=== PATIENT | male | born 1945 | race Caucasian/White ===

== ENCOUNTER 2018-09-03 19:45 | Emergency (ER) | payer MEDICARE ==
[~2018-09-03] VITALS: Ht 182.9 cm; Wt 74.8 kg
--- NOTE | 2018-09-03 20:00 | NUR ---
PT BIBRA FROM SNF COMPLAINING OF FOR BILATERAL LOWER EXTREMITY EDEMA X 1 WEEK. NOTED BILATERAL LOWER EXTREMITY REDDNESS. PT HAS FULL RANGE OF MOTION. PT ALSO COMPLAINING OF CLAVICULAR PAIN. PT IS AWAKE AND CONFUSED. RESPIRATIONS EVEN AND UNLABORED. VITAL SIGNS STABLE. WILL CONTINUE TO MONITOR
--- NOTE | 2018-09-03 20:10 | NUR ---
SPECIAL EDUCATION RESOURCE ROOM TEACHER AT BEDSIDE FOR BLOOD DRAW
[2018-09-03 20:18] LABS: BASOPHILS # (AUTO) 0.1 /CMM (0.0-0.2); BASOPHILS % (AUTO) 0.6 % (0.0-2.0); HEMATOCRIT 46 % (39-51); HEMOGLOBIN 15.6 g/dL (13.5-17.5); LYMPHOCYTES # (AUTO) 0.4 /CMM (0.8-4.8); LYMPHOCYTES % (AUTO) 3.9 % (20.0-44.0); MEAN CORPUSCULAR HGB CONC 34 g/dl (31.0-36.0); MEAN CORPUSCULAR VOLUME 97 fL (80-96); MONOCYTES # (AUTO) 1.3 /CMM (0.1-1.30); MONOCYTES % (AUTO) 12.4 % (2.0-12.0); NEUTROPHILS # (AUTO) 8.7 /CMM (1.8-8.9); NEUTROPHILS % (AUTO) 83.1 % (43.0-81.0); PLATELET COUNT (AUTO) 99 /CMM (150-450); RED BLOOD CELL COUNT(AUTO) 4.69 MIL/uL (4.5-6.0); WHITE BLOOD COUNT (AUTO) 10.4 K/uL (4.3-11.0)
--- NOTE | 2018-09-03 20:24 | NUR ---
RADIOLOGY AT BEDSIDE
[2018-09-03 20:34] LABS: CALCIUM, SERUM 8.6 mg/dL (8.5-10.1); CARBON DIOXIDE 33 mmol/L (21-32); CHLORIDE 98 mmol/L (98-107); CREATININE 1.2 mg/dL (0.6-1.3); GLUCOSE 156 mg/dL (74-106); POTASSIUM 4.2 mmol/L (3.5-5.1); SODIUM SERUM 135 mmol/L (136-145); UREA NITROGEN, BLOOD 19 mg/dL (7-18)
[2018-09-03 20:46] LABS: B-TYPE NATRIURETIC PEPTIDE 170 PG/ML (0-125)
[2018-09-03 21:04] LABS: BAND % (MANUAL) 4 % (0.0-5.0); LYMPHOCYTES % (MANUAL) 6 % (16-48); MONOCYTES % (MANUAL) 10 % (0-11.0); NEUTROPHILS % (MANUAL) 80 (42-76)
--- NOTE | 2018-09-03 22:39 | NUR ---
GAVE REPORT TO YOLANDA FROM [facility] FOR TRANSFER GIOVANNA
[2018-09-03 22:49] VITALS: BP 137/83
== END 2018-09-03 22:50 | disposition home or self-care (01) ==
LOC: ER 19:49
DX: R60.0 Localized edema (principal); E78.00 Pure hypercholesterolemia, unspecified; I10 Essential (primary) hypertension; K21.9 Gastro-esophageal reflux disease without esophagitis; F03.90 Unspecified dementia, unspecified severity, without behavioral disturbance, psychotic disturbance, mood disturbance, and anxiety
CPT/HCPCS: 36415; 71045-TC; 80048-TC; 83880; 84484-TC; 85025-TC; A4606; Z7610

== ENCOUNTER 2018-09-18 21:43 | Inpatient (IN) | payer MEDICARE ==
[~2018-09-18] VITALS: Ht 180.3 cm; Wt 74.8 kg
--- NOTE | 2018-09-18 21:45 | NUR ---
PT JULIO CÉSAR FROM [facility] FOR BEING AGGRESSIVE TOWARDS STAFF AND RESIDENTS FOR 2 WEEKS. PT IS ALERT, AND FOLLOWS COMMANDS. UNABLE TO STATE LOCATION AND DATE. NAD NOTED. RESPIRATION EVEN AND UNLABORED. PENDING EVAL FROM .
--- NOTE | 2018-09-18 22:15 | NUR ---
PT UNABLE TO URINATE.
--- NOTE | 2018-09-18 22:25 | NUR ---
RAIL CAR REPAIR CARMAN AT BEDSIDE.
[2018-09-18 22:36] LABS: BASOPHILS % (AUTO) 0.5 % (0.0-2.0); EOSINOPHILS % (AUTO) 0.8 % (0.0-6.0); HEMATOCRIT 38 % (39-51); HEMOGLOBIN 12.8 g/dL (13.5-17.5); LYMPHOCYTES # (AUTO) 0.9 /CMM (0.8-4.8); LYMPHOCYTES % (AUTO) 15.3 % (20.0-44.0); MEAN CORPUSCULAR HGB CONC 33 g/dl (31.0-36.0); MEAN CORPUSCULAR VOLUME 96 fL (80-96); MONOCYTES # (AUTO) 0.7 /CMM (0.1-1.30); MONOCYTES % (AUTO) 12.1 % (2.0-12.0); NEUTROPHILS % (AUTO) 71.3 % (43.0-81.0); PLATELET COUNT (AUTO) 96 /CMM (150-450); RED BLOOD CELL COUNT(AUTO) 4.01 MIL/uL (4.5-6.0); WHITE BLOOD COUNT (AUTO) 5.7 K/uL (4.3-11.0)
--- NOTE | 2018-09-18 22:50 | NUR ---
PT UNABLE TO URINATE. MD AWARE.
[2018-09-18 22:54] LABS: ALANINE AMINOTRANSFERASE 21 U/L (12-78); ALBUMIN 2.6 g/dL (3.4-5.0); ALKALINE PHOSPHATASE 67 U/L (46-116); ASPARTATE AMINOTRANSFERASE 24 U/L (15-37); BILIRUBIN,DIRECT 0.1 mg/dL (0.0-0.2); BILIRUBIN,TOTAL 0.3 mg/dL (0.2-1.0); CALCIUM, SERUM 8.5 mg/dL (8.5-10.1); CARBON DIOXIDE 34 mmol/L (21-32); CHLORIDE 104 mmol/L (98-107); CREATININE 1.3 mg/dL (0.6-1.3); GLUCOSE 145 mg/dL (74-106); POTASSIUM 4.1 mmol/L (3.5-5.1); SODIUM SERUM 139 mmol/L (136-145); TOTAL PROTEIN, SERUM 6.8 g/dL (6.4-8.2); UREA NITROGEN, BLOOD 25 mg/dL (7-18)
[2018-09-18 22:55] LABS: ACETAMINOPHEN 0 ug/ml (10-30); ALCOHOL, BLOOD < 3 mg/dL (0-0); SALICYLATE 0.7 mg/dL (2.8-20.0)
--- NOTE | 2018-09-18 23:18 | NUR ---
Patient is resting comfortably in bed with eyes closed. Easily aroused. VSS. NAD.
--- NOTE | 2018-09-18 23:42 | NUR ---
Patient is resting comfortably in bed with eyes closed. Easily aroused. VSS
--- NOTE | 2018-09-19 00:06 | NUR ---
PSYCH FIBERGLASS GRINDER AT BEDSIDE SPEAKING WITH PT.
[2018-09-19 00:31] LABS: EOSINOPHILS % (MANUAL) 2 % (0-4); LYMPHOCYTES % (MANUAL) 15 % (16-48); MONOCYTES % (MANUAL) 8 % (0-11.0); NEUTROPHILS % (MANUAL) 75 (42-76)
--- NOTE | 2018-09-19 01:38 | NUR ---
Report given to Elena MENDEZ for GIOVANNA.
[2018-09-19] MEDS ORDERED: BENZ0.5T43 PO (02:02)
[2018-09-19] MEDS ORDERED: MAGN400O6 PO (02:02)
[2018-09-19] MEDS ORDERED: HALO100A2 PO (02:02)
[2018-09-19] MEDS ORDERED: FLUV50TA10 PO (02:02)
[2018-09-19] MEDS ORDERED: ACET325T53 PO (02:02)
[2018-09-19] MEDS ORDERED: DIVA500T2 PO (02:02)
[2018-09-19] MEDS ORDERED: TEMA15CA5 PO (02:02)
--- NOTE | 2018-09-19 02:20 | NUR ---
PATIENT ADMITTED FROM [facility], INITIALLY FROM [facility] ON 5150 HOLD FOR GD. PATIENT CAME IN AT 0220 . PLACED HIM IN BED, PATIENT IS VERY LETHARGIC, MUMBLING, UNABLE TO UNDERSTAND HIS WORDS. DEPRESSED, FLAT AFFECT, CLEAN. UNABLE TO ASSESS SKIN, UNCOOPERATIVE, UNABLE TO FOLLOW INSTRUCTIONS DUE TO LETHARGY, A/O X1, CONFUSED. PATIENT IS ADMITTED DUE TO INCREASING AGGRESSIVE BEHAVIOR TO STAFF AT THE FACILITY. DISORGANIZED, DISORIENTED. BELONGINGS WERE INVENTORIED AND CHECKED FOR CONTRABAND. MED RECON NEEDS FOLLOW-UP, MRSA SCREEN DONE. PATIENT IS IN NO DISTRESS, NO S/S OF ANY PAIN. SON MADDISON, NOTIFIED OF ADMISSION, LEFT HIM A MESSAGE. BED LOCKED AND PLACED ON LOWEST POSITION. WILL CONTINUE TO MONITOR Q 15 MINS. TO MAINTAIN SAFETY.
[2018-09-19] MEDS ORDERED: ACETAMINOPHEN 325 MG TABLET PO PRN (02:30)
[2018-09-19] MEDS ORDERED: LORAZEPAM 0.5 MG TABLET PO PRN (02:30)
[2018-09-19] MEDS ORDERED: MAGNESIUM HYDROXIDE 30 ML UDC PO PRN (02:30)
[2018-09-19] MEDS ORDERED: TEMAZEPAM 7.5 MG CAPSULE PO PRN (02:30)
[2018-09-19] MEDS ORDERED: MAG HYDROX/AL HYDROX/SIMETH 30 ML UDC PO PRN (02:30)
[2018-09-19] MEDS ORDERED: IBUP-1955 PO (07:54)
[2018-09-19] MEDS ORDERED: NA P133E RC (07:54)
[2018-09-19] MEDS ORDERED: HALO5TAB PO (07:54)
[2018-09-19] MEDS ORDERED: MULT-447 PO (07:54)
[2018-09-19 08:31] VITALS: BP 97/63
[2018-09-19] MEDS: HALOPERIDOL 5 MG TABLET PO SCH ×2 (12:53→21:35)
[2018-09-19] MEDS: BENZTROPINE MESYLATE (1 MG) 1 MG TABLET PO SCH ×2 (12:54→21:35)
[2018-09-19] MEDS: DIVALPROEX SODIUM 500 MG TABLET.DR PO SCH ×2 (12:54→21:34)
[2018-09-19 16:00] VITALS: BP 105/64
[2018-09-19 20:00] VITALS: BP 103/59
[2018-09-19] MEDS: FLUVOXAMINE MALEATE 50 MG TABLET PO SCH (21:36)
[2018-09-20 07:22] LABS: BASOPHILS % (AUTO) 0.3 % (0.0-2.0); EOSINOPHILS % (AUTO) 2.2 % (0.0-6.0); HEMATOCRIT 39 % (39-51); LYMPHOCYTES # (AUTO) 1.1 /CMM (0.8-4.8); LYMPHOCYTES % (AUTO) 21.8 % (20.0-44.0); MEAN CORPUSCULAR HGB CONC 34 g/dl (31.0-36.0); MEAN CORPUSCULAR VOLUME 96 fL (80-96); MONOCYTES # (AUTO) 0.7 /CMM (0.1-1.30); MONOCYTES % (AUTO) 13.7 % (2.0-12.0); PLATELET COUNT (AUTO) 95 /CMM (150-450); RED BLOOD CELL COUNT(AUTO) 4.05 MIL/uL (4.5-6.0); WHITE BLOOD COUNT (AUTO) 4.9 K/uL (4.3-11.0)
[2018-09-20 07:48] LABS: CHOLESTEROL 152 mg/dL (<200); HDL CHOLESTEROL 35 mg/dL (40-60); LDL 112 mg/dL (0-99); TRIGLYCERIDES 62 mg/dL (30-150)
[2018-09-20 07:58] LABS: ALANINE AMINOTRANSFERASE 20 U/L (12-78); ALBUMIN 2.2 g/dL (3.4-5.0); ALKALINE PHOSPHATASE 61 U/L (46-116); ASPARTATE AMINOTRANSFERASE 21 U/L (15-37); BILIRUBIN,TOTAL 0.3 mg/dL (0.2-1.0); CALCIUM, SERUM 8.2 mg/dL (8.5-10.1); CARBON DIOXIDE 31 mmol/L (21-32); CHLORIDE 105 mmol/L (98-107); CREATININE 1.3 mg/dL (0.6-1.3); GLUCOSE 99 mg/dL (74-106); POTASSIUM 4.2 mmol/L (3.5-5.1); SODIUM SERUM 139 mmol/L (136-145); TOTAL PROTEIN, SERUM 6.2 g/dL (6.4-8.2); UREA NITROGEN, BLOOD 21 mg/dL (7-18)
[2018-09-20 08:00] VITALS: BP 100/61
[2018-09-20] MEDS: DIVALPROEX SODIUM 500 MG TABLET.DR PO SCH ×2 (09:36→21:24)
[2018-09-20] MEDS: HALOPERIDOL 5 MG TABLET PO SCH ×2 (09:36→21:24)
[2018-09-20] MEDS: BENZTROPINE MESYLATE (1 MG) 1 MG TABLET PO SCH ×2 (09:36→21:24)
[2018-09-20 13:30] LABS: EOSINOPHILS % (MANUAL) 2 % (0-4); LYMPHOCYTES % (MANUAL) 22 % (16-48); MONOCYTES % (MANUAL) 5 % (0-11.0); NEUTROPHILS % (MANUAL) 71 (42-76)
[2018-09-20 16:00] VITALS: BP 100/62
[2018-09-20 20:25] VITALS: BP 121/64
[2018-09-20] MEDS: FLUVOXAMINE MALEATE 50 MG TABLET PO SCH (21:24)
[2018-09-21 08:00] VITALS: BP 95/54
[2018-09-21] MEDS: DIVALPROEX SODIUM 500 MG TABLET.DR PO SCH ×2 (09:03→21:25)
[2018-09-21] MEDS: HALOPERIDOL 5 MG TABLET PO SCH ×2 (09:03→21:25)
[2018-09-21] MEDS: BENZTROPINE MESYLATE (1 MG) 1 MG TABLET PO SCH ×2 (09:03→21:25)
--- NOTE | 2018-09-21 13:56 | NUR ---
MIKE called the pt's son, Rahat ([phone]), and left a message on his voicemail stating that the SW would like to discuss the pt's discharge plan.
--- NOTE | 2018-09-21 15:32 | NUR ---
Initial Discharge Plan: Pt currently resides at [facility] located at [address] [place] [address]; ([phone]). MIKE called the junior systems administrator, Hemalatha Ann ([phone]), and she stated that the pt can return. MIKE will work with the pt and the MD regarding appropriate discharge planning. SW will form a safe and proper discharge.
[2018-09-21 16:00] VITALS: BP 101/61
[2018-09-21 20:35] VITALS: BP 115/64
[2018-09-21] MEDS: FLUVOXAMINE MALEATE 50 MG TABLET PO SCH (21:26)
[2018-09-22 08:00] VITALS: BP_SYST 100; BP_DIAS 56; BP_DIAS 65
[2018-09-22] MEDS: BENZTROPINE MESYLATE (1 MG) 1 MG TABLET PO SCH ×2 (08:31→21:12)
[2018-09-22] MEDS: HALOPERIDOL 5 MG TABLET PO SCH ×2 (08:31→21:11)
[2018-09-22] MEDS: DIVALPROEX SODIUM 500 MG TABLET.DR PO SCH ×2 (08:31→21:12)
[2018-09-22] MEDS: ASPIRIN 81 MG TAB.CHEW PO SCH (08:36)
--- NOTE | 2018-09-22 15:12 | NUR ---
MIKE called the pt's son, Rahat ([phone]), and discussed the pt returning to [facility]. Pt's son stated that he is looking into other facilities for his father but for the time being he would accept for the pt to go back to [facility] because it is a familiar environment for him.
--- NOTE | 2018-09-22 16:00 | NUR ---
GPS/RN-NOTES SEEN BY NELSON THOMASON AWARE OF PATIENT BLE EDEMA.
[2018-09-22 20:00] VITALS: BP 102/52
[2018-09-22] MEDS: FLUVOXAMINE MALEATE 50 MG TABLET PO SCH (21:11)
[2018-09-22] MEDS: ATORVASTATIN 40 MG TABLET PO SCH (22:18)
[2018-09-23 08:00] VITALS: BP 100/96
[2018-09-23] MEDS: HALOPERIDOL 5 MG TABLET PO SCH ×2 (09:31→21:45)
[2018-09-23] MEDS: ASPIRIN 81 MG TAB.CHEW PO SCH (09:31)
[2018-09-23] MEDS: BENZTROPINE MESYLATE (1 MG) 1 MG TABLET PO SCH ×2 (09:31→21:44)
[2018-09-23] MEDS: DIVALPROEX SODIUM 500 MG TABLET.DR PO SCH ×2 (09:31→21:45)
--- NOTE | 2018-09-23 12:40 | NUR ---
Group Note: Group note: Pt attended a group session on 09/23/18 at 11AM discussing the topic of their psychiatric admission and an area in their life that they would like to work on and improve. S: Pt stated that he was admitted to the hospital and he was unsure of the reason. The pt stated that he is trying to understand everything that has been happening and just wants things to go back to normal. Pt stated that once he is discharged from the hospital, he would like to reconnect with his family. O: Pt was present during the group session and was cooperative. Pt appeared to be in a euthymic mood and presented with a distressed affect. Pt appeared to be uncomfortable when he first arrived but then once he was introduced to the other members, the pt appeared to feel more comfortable and began to participate. A: Pt understood that he has been disconnected from his support system because he has been moving around from facility to facility and it has been difficult for his family. He stated that he has not been speaking to his son lately because he wants to be able to understand his own life but realized that his son would be a great support to him. P: Pt will continue milieu treatment and medication stabilization.
[2018-09-23 16:00] VITALS: BP 152/56
--- NOTE | 2018-09-23 19:30 | NUR ---
Received pt asleep and in bed; no s/s or complaints of pain at this time. Pt is displaying no s/s of acute/apparent distress at this time. Pt's RR is WNL: unlabored with equal rise and fall of the chest. Pt. is A&Ox3 on room air with a SpO2 of 100. Pt. is med compliant, depressed mood. Pt denies SI/HI at this time. Pt. assisted with turning and repositioning q2hrs and PRN for comfort and circulation. Pt. has no needs at this time. Pt. educated on the use of the call orellana. Pt bed side rails up x2 for safety, bed is locked and in low position; will continue to monitor and maintain safety.
[2018-09-23 20:00] VITALS: BP 102/57
[2018-09-23] MEDS: FLUVOXAMINE MALEATE 50 MG TABLET PO SCH (21:45)
[2018-09-23] MEDS: ATORVASTATIN 40 MG TABLET PO SCH (21:45)
[2018-09-24 08:00] VITALS: BP 109/55
[2018-09-24] MEDS: BENZTROPINE MESYLATE (1 MG) 1 MG TABLET PO SCH ×2 (10:09→20:51)
[2018-09-24] MEDS: DIVALPROEX SODIUM 500 MG TABLET.DR PO SCH ×2 (10:09→20:50)
[2018-09-24] MEDS: HALOPERIDOL 5 MG TABLET PO SCH ×2 (10:09→20:50)
[2018-09-24] MEDS: ASPIRIN 81 MG TAB.CHEW PO SCH (10:10)
--- NOTE | 2018-09-24 14:15 | NUR ---
MIKE called the pt's son, Rahat ([phone]), and informed him that the pt will be discharged back to [facility] tomorrow.
[2018-09-24 16:00] VITALS: BP 102/53
[2018-09-24 20:11] VITALS: BP 101/52
[2018-09-24] MEDS: ATORVASTATIN 40 MG TABLET PO SCH (20:50)
[2018-09-24] MEDS: FLUVOXAMINE MALEATE 50 MG TABLET PO SCH (20:50)
[2018-09-25 07:43] LABS: BASOPHILS % (AUTO) 0.6 % (0.0-2.0); EOSINOPHILS % (AUTO) 1.5 % (0.0-6.0); HEMATOCRIT 38 % (39-51); HEMOGLOBIN 12.8 g/dL (13.5-17.5); LYMPHOCYTES # (AUTO) 1.2 /CMM (0.8-4.8); LYMPHOCYTES % (AUTO) 22.6 % (20.0-44.0); MEAN CORPUSCULAR HGB CONC 34 g/dl (31.0-36.0); MEAN CORPUSCULAR VOLUME 96 fL (80-96); MONOCYTES # (AUTO) 0.7 /CMM (0.1-1.30); MONOCYTES % (AUTO) 13.2 % (2.0-12.0); NEUTROPHILS # (AUTO) 3.2 /CMM (1.8-8.9); NEUTROPHILS % (AUTO) 62.1 % (43.0-81.0); PLATELET COUNT (AUTO) 96 /CMM (150-450); RED BLOOD CELL COUNT(AUTO) 3.96 MIL/uL (4.5-6.0); WHITE BLOOD COUNT (AUTO) 5.2 K/uL (4.3-11.0)
[2018-09-25 07:58] LABS: CALCIUM, SERUM 8.1 mg/dL (8.5-10.1); CARBON DIOXIDE 33 mmol/L (21-32); CHLORIDE 102 mmol/L (98-107); CREATININE 1.2 mg/dL (0.6-1.3); GLUCOSE 70 mg/dL (74-106); POTASSIUM 4.5 mmol/L (3.5-5.1); SODIUM SERUM 138 mmol/L (136-145); UREA NITROGEN, BLOOD 27 mg/dL (7-18)
[2018-09-25 08:00] VITALS: BP 100/59
[2018-09-25] MEDS: ASPIRIN 81 MG TAB.CHEW PO SCH (08:24)
[2018-09-25] MEDS: BENZTROPINE MESYLATE (1 MG) 1 MG TABLET PO SCH (08:24)
[2018-09-25] MEDS: HALOPERIDOL 5 MG TABLET PO SCH (08:24)
[2018-09-25] MEDS: DIVALPROEX SODIUM 500 MG TABLET.DR PO SCH (08:24)
--- NOTE | 2018-09-25 10:17 | NUR ---
MIKE faxed the paperwork to Hemalatha Ann from [facility] to the fax number: [phone].
--- NOTE | 2018-09-25 10:30 | NUR ---
DR. FRANCO GAVE AN ORDER TO D/C HOLD AND D/C TO [facility], TO FOLLOW UP WITH PSYCH AND MEDICAL DOCTORS AND TO CONTINUE SAME MEDS INCLUDING PRN.
--- NOTE | 2018-09-25 15:14 | NUR ---
GPS RN NOTE; PT DISCHARGE TO [facility] [address] [place], [place] LEFT BY AMBULANCE IN STABLE CONDITION . PT CALM AND COOPERATIVE VSS, BP 97/65 P 65 O2 98 T 98.1 PT DENIES SI/HI, NO C/O PAIN DISCOMFORT. DR FRANCO ORDER DC PT TO SNF DR CASANOVA SEEN AND EXAMINE A PT . EXIT CARE DONE PRINTED, SIGN AND GIVEN TO PT. ALL BELONGINGS RETURNED TO PT,PT REFUSED SKIN ASSESSMENT , REPORT GIVEN TO RN IN THE FACILITY.
--- NOTE | 2018-09-25 15:29 | NUR ---
Discharge Note: Pt was discharged to [facility] ([facility]) located at [address] [place] [address]; ([phone]). Pt was transported via [facility] (Trip #[id number]) at 2:30pm. Pts son, Rahat ([phone]), agreed to this placement. Upon discharge, the pt appeared to be in a euthymic mood and presented with an anxious affect. He stated that he would like to return to the facility that he came from because he was familiar with it. Pt denied both suicidal and homicidal ideation as well as auditory and visual hallucinations. Pt will be under the care of his psychiatrist, Dr. [place], [place] [address] [place] [address]; and his hse manager, Dr. Keating, located at [address] [address], [address] [place] [address]; .
== END 2018-09-25 15:00 | DRG 885 ==
LOC: ER 21:45 → GPS 09-19 02:05
PROVIDERS: ADMIT Psychiatry & Neurology Psychiatry; ATTEND Psychiatry & Neurology Psychiatry
DX: F29 Unspecified psychosis not due to a substance or known physiological condition (principal); E44.0 Moderate protein-calorie malnutrition; F42.9 Obsessive-compulsive disorder, unspecified; E78.5 Hyperlipidemia, unspecified; F03.90 Unspecified dementia, unspecified severity, without behavioral disturbance, psychotic disturbance, mood disturbance, and anxiety; F41.9 Anxiety disorder, unspecified; G47.00 Insomnia, unspecified; I10 Essential (primary) hypertension; K21.9 Gastro-esophageal reflux disease without esophagitis; R73.03 Prediabetes; Z68.23 Body mass index [BMI] 23.0-23.9, adult; E88.09 Other disorders of plasma-protein metabolism, not elsewhere classified; R60.0 Localized edema
CPT/HCPCS: 36415; 80048-TC; 80053-TC; 80061-TC; 80076-TC; 85025-TC; 87081-TC; 93307-TC; G0480

== ENCOUNTER 2021-08-11 12:43 | Inpatient (IN) | payer MEDICARE ==
[~2021-08-11] VITALS: Ht 180.3 cm; Wt 59.4 kg
[~2021-08-11 12:43] MED LIST: ACET325T53 PO; IBUP-1955 PO; MAGN400O6 PO; MULT-447 PO; NA P133E RC
--- NOTE | 2021-08-11 13:07 | NUR ---
The patient is bibson, sent by Dr. Jett for weakness and snf placement. Alert and oriented x2. Denies pain. In room air and denies SOB. Respiration regular and unlabored. Will continue to monitor the patient.
--- NOTE | 2021-08-11 13:12 | NUR ---
MOVE SHEET SUBMITTED AND CALLED FOR TELE BED.
--- NOTE | 2021-08-11 13:24 | NUR ---
COVID SWAB DONE AND SENT TO THE LAB
[2021-08-11] MEDS ORDERED: IV NS 0.9% 1,000 ML BAG IV ONE (13:30)
[2021-08-11] MEDS ORDERED: CLON1TAB12 PO (13:36)
[2021-08-11] MEDS ORDERED: QUET50TA PO (13:36)
[2021-08-11] MEDS ORDERED: ZOLP5TAB2 PO (13:36)
[2021-08-11] MEDS ORDERED: SKULLCAP PO (13:36)
[2021-08-11] MEDS ORDERED: DIVA-78 PO (13:36)
[2021-08-11 13:45] LABS: BASOPHILS % (AUTO) 0.8 % (0.0-2.0); EOSINOPHILS % (AUTO) 4.5 % (0.0-6.0); HEMATOCRIT 35 % (39-51); HEMOGLOBIN 11.9 g/dL (13.5-17.5); LYMPHOCYTES # (AUTO) 0.7 K/uL (0.8-4.8); LYMPHOCYTES % (AUTO) 15.2 % (20.0-44.0); MEAN CORPUSCULAR HGB CONC 34 g/dl (31.0-36.0); MEAN CORPUSCULAR VOLUME 97 fL (80-96); MONOCYTES # (AUTO) 0.6 K/uL (0.1-1.30); MONOCYTES % (AUTO) 13.6 % (2.0-12.0); NEUTROPHILS # (AUTO) 3.1 K/uL (1.8-8.9); NEUTROPHILS % (AUTO) 65.9 % (43.0-81.0); PLATELET COUNT (AUTO) 186 K/uL (150-450); RED BLOOD CELL COUNT(AUTO) 3.66 MIL/uL (4.5-6.0); WHITE BLOOD COUNT (AUTO) 4.7 K/uL (4.3-11.0)
[2021-08-11 13:49] LABS: ALANINE AMINOTRANSFERASE 14 U/L (12-78); ALBUMIN 2.6 g/dL (3.4-5.0); ALKALINE PHOSPHATASE 101 U/L (46-116); ASPARTATE AMINOTRANSFERASE 28 U/L (15-37); BILIRUBIN,TOTAL 0.4 mg/dL (0.2-1.0); CALCIUM, SERUM 8.3 mg/dL (8.5-10.1); CARBON DIOXIDE 31 mmol/L (21-32); CHLORIDE 100 mmol/L (98-107); GLUCOSE 146 mg/dL (74-106); LIPASE 64 U/L (73-393); POTASSIUM 5.5 mmol/L (3.5-5.1); SODIUM SERUM 136 mmol/L (136-145); TOTAL PROTEIN, SERUM 6.6 g/dL (6.4-8.2); UREA NITROGEN, BLOOD 20 mg/dL (7-18)
--- NOTE | 2021-08-11 14:28 | NUR ---
REPORT GIVEN NURSE SINGH
--- NOTE | 2021-08-11 14:42 | NUR ---
THE PATIENT IS TRANSFERED TO ASSIGNED ROOM PER POLICY
--- NOTE | 2021-08-11 15:00 | NUR ---
HOT BLASTER NOTE ADMITTED FROM ER IS A MALE PATIENT TRANSPORTED ON A GURNEY, AND ACCOMPANIED BY 2 NURSES. PATIENT TRANSFERRD TO BED AND COMFORT MEASURES PROVIDED. PATIENT IS ALERT AND ORIENTED X 1. FOLLOWS SIMPLE COMMANDS MOST OF THE TIME. PATIENT IS ON ROOM AIR WITH EQUAL AND UNLABORED BREATHING, TOLERATED WELL. PATIENT REMOVED IV ACCESS ON LEFT AC FROM ER. REINSERTED IV ACCESS ON RIGHT FOREARM G,20 INFUSING WELL. STARTED IVF OF 1/2 NS RUNNING AT 75ML/HR, INFUSING WELL. PATIENT KEEPS ON GETTING UP IS UNAWARE CONFUSED ABOUT HIS NEW ENVIRONMENT. PATIENT SPEECH IS UNCLEAR, WHICH IS APPARENTLY HIS BASELINE. DR. CASANOVA NOTIFIED OF ADMISSION. SAFETY MEASURES ENSURED WITH SIDERAILS RAISED FOR SAFETY, BED LOCKED AND AT LOWEST POSITION WITH ALARM ON. CALL LIGHT WITHIN REACH AT ALL TIMES. WILL CONTINUE TO MONITOR PATIENT.
[2021-08-11 16:00] VITALS: BP 114/69
[2021-08-11] MEDS ORDERED: MAG HYDROX/AL HYDROX/SIMETH 30 ML UDC PO PRN (16:00)
[2021-08-11] MEDS ORDERED: MAGNESIUM HYDROXIDE 30 ML UDC PO PRN (16:00)
[2021-08-11] MEDS ORDERED: ZOLPIDEM TARTRATE 5 MG TABLET PO PRN (16:00)
[2021-08-11] MEDS ORDERED: ACETAMINOPHEN 325 MG TABLET PO PRN (16:00)
[2021-08-11] MEDS ORDERED: ONDANSETRON HCL/PF 4 MG/2 ML VIAL IVP PRN (16:00)
[2021-08-11] MEDS ORDERED: Z GUARD REMEDY 2 OZ OINT TP PRN (16:00)
[2021-08-11] MEDS: IV 1/2NS 1000 ML 1,000 ML IV PRN (16:11)
[2021-08-11] MEDS: ENOXAPARIN SODIUM 40 MG/0.4 ML DISP.SYRIN SQ SCH (17:08)
[2021-08-11] MEDS: ASPIRIN 81 MG TAB.CHEW PO SCH (19:02)
--- NOTE | 2021-08-11 19:10 | NUR ---
INVESTIGATIVE ANALYST CLOSING NOTE PATIENT IS ALERT AND ORIENTED X 1. FOLLOWS SIMPLE COMMANDS MOST OF THE TIME. PATIENT IS ON ROOM AIR WITH EQUAL AND UNLABORED BREATHING, TOLERATED WELL. PATIENT WITH IV ACCESS ON RIGHT FOREARM G,20 INFUSING WELL. STARTED IVF OF 1/2 NS RUNNING AT 75ML/HR, INFUSING WELL. PATIENT KEEPS ON GETTING UP IS UNAWARE CONFUSED ABOUT HIS NEW ENVIRONMENT AND IS A HIGH RISK FOR FALL. SECURED ORDERED FROM DR. CASANOVA FOR SOFT WRIST RESTRAINTS. SON MADDISON AWARE AND VERBALIZED UNDERSTANDING. PATIENT SPEECH IS UNCLEAR, WHICH IS APPARENTLY HIS BASELINE. SAFETY MEASURES ENSURED WITH SIDERAILS RAISED FOR SAFETY, BED LOCKED AND AT LOWEST POSITION WITH ALARM ON. CALL LIGHT WITHIN REACH AT ALL TIMES. WILL ENDORSE PATIENT FOR CONTINUITY OF CARE.
--- NOTE | 2021-08-11 19:15 | NUR ---
ENDS DOWN CHECKER OPENING NOTE PT AWAKE IN BED, A/OX1 TO NAME, DISORIENTED/CONFUSED, ABLE TO FOLLOW SIMPLE DIRECTIONS. RESPIRATIONS EVEN/UNLABORED, ON ROOM AIR, CHRISTOPHER.WELL. IV SITE R-FA #[address], RUNNING 1/2NS @75ML/HR. WITH CANDICE. SOFT WRIST RESTRAINTS IN PLACE D/T PULLING OUT LINES/TUBINGS/TELE MONITOR. SKIN/CIRCULATION WITH NO S/S OF COMPLICATIONS NOTED. SAFETY MEASURES IN PLACE. WILL CONT TO MONITOR.
[2021-08-11 20:00] VITALS: BP 104/61
--- NOTE | 2021-08-11 22:22 | NUR ---
RN NOTE NOTED PT'S RESTRAINTS OFF AND HAD PULLED OUT HIS IV AND TELE MONITOR. PT REDIRECTED, BEDSIDE CARE DONE, CHANGED SOILED LINENS AND MADE COMFORTABLE IN BED. PT FOLLOWED DIRECTIONS. ABLE TO REINSERT IV TO R-UPPER ARM #22G AND CHRISTOPHER WELL. RECONNECTED TO TELE MONITOR AND RE-APPLIED CANDICE. SOFT WRIST RESTRAINTS. WILL CONT. FREQUENT VISUAL CHECK.
[2021-08-12] VITALS: BP 134/67
[2021-08-12 04:00] VITALS: BP 121/61
[2021-08-12 07:09] LABS: BASOPHILS % (AUTO) 0.8 % (0.0-2.0); EOSINOPHILS % (AUTO) 3.6 % (0.0-6.0); HEMATOCRIT 36 % (39-51); HEMOGLOBIN 12.3 g/dL (13.5-17.5); LYMPHOCYTES # (AUTO) 0.8 K/uL (0.8-4.8); MEAN CORPUSCULAR HGB CONC 34 g/dl (31.0-36.0); MEAN CORPUSCULAR VOLUME 96 fL (80-96); MONOCYTES # (AUTO) 0.7 K/uL (0.1-1.30); NEUTROPHILS # (AUTO) 4.1 K/uL (1.8-8.9); NEUTROPHILS % (AUTO) 69.6 % (43.0-81.0); PLATELET COUNT (AUTO) 155 K/uL (150-450); RED BLOOD CELL COUNT(AUTO) 3.78 MIL/uL (4.5-6.0); WHITE BLOOD COUNT (AUTO) 5.9 K/uL (4.3-11.0)
--- NOTE | 2021-08-12 07:15 | NUR ---
TELE/RN CLOSING NOTE PT RESTING IN BED, EASILY AROUSABLE TO STIMULI. VERBALLY RESPONSIVE WITH CONFUSION. REORIENTATION PROVIDED. NO S/S OF PAIN NOTED. PT WITH CANDICE. SOFT WRIST RESTRAINTS IN PLACE FOR SAFETY D/T PULLING OUT LINES. SKIN AND CIRCULATION WNL. PT IN NO ACUTE DISTRESS. SAFETY MEASURES IN PLACE.
--- NOTE | 2021-08-12 07:30 | NUR ---
SKID MACHINE OPERATOR OPENING NOTES RECEIVED PATIENT ON BED, AWAKE AND VERBALLY RESPONSIVE WITH CONFUSION. ON ROOM AIR TOLERATING WELL. NO SOB NOTED. NOT IN DISTRESS. WITH NO SIGNS OF PAIN VIA FLACC. WITH IV ACCESS AT RIGHT UPPER ARM G22 WITH 1/2NS AT 75ML/HR INFUSING WELL. ON SOFT BILATERAL WRIST RESTRAINTS DUE TO PULLING OUT IV LINES AND GIZZARD SKIN REMOVER. SKIN AND CIRCULATION WITHIN NORMAL. SAFETY MEASURES IN PLACE. CALL LIGHT WITHIN REACH. BED ON LOWEST AND LOCKED POSITION, SIDE RAILS UP X2. WILL CONTINUE TO MONITOR.
[2021-08-12 08:00] VITALS: BP 138/84
[2021-08-12 08:02] LABS: CALCIUM, SERUM 8.1 mg/dL (8.5-10.1); CREATININE 0.9 mg/dL (0.6-1.3); PHOSPHORUS 3.2 mg/dL (2.5-4.9); POTASSIUM 4.4 mmol/L (3.5-5.1)
[2021-08-12 08:13] LABS: THYROID STIMULATING HORMONE 1.39 uIU/mL (0.358-3.74)
[2021-08-12] MEDS ORDERED: MAGNESIUM HYDROXIDE 30 ML UDC PO PRN (09:00)
[2021-08-12] MEDS ORDERED: ACETAMINOPHEN 325 MG TABLET PO PRN (09:00)
--- NOTE | 2021-08-12 09:00 | NUR ---
MS RN NOTES PATIENT TOOK 30% OF HIS CRUSHED MEDICATIONS WITH APPLE SAUCE. PATIENT KEPT ON SPITTING OUT MEDICATIONS.
[2021-08-12] MEDS: PANTOPRAZOLE 40 MG TABLET.DR PO SCH (09:05)
[2021-08-12] MEDS: ASPIRIN 81 MG TAB.CHEW PO SCH (09:05)
[2021-08-12] MEDS: clonazePAM 1 MG TABLET PO SCH ×3 (09:05→16:46)
[2021-08-12] MEDS: DIVALPROEX SODIUM 500 MG TABLET.DR PO SCH ×3 (09:05→16:46)
[2021-08-12] MEDS: QUETIAPINE FUMARATE 25 MG TABLET PO SCH ×2 (09:05→16:46)
[2021-08-12] MEDS: MULTIVIT W/MINERALS 1 TAB TABLET PO SCH (09:05)
[2021-08-12] MEDS: ENSURE ENLIVE 237 ML LIQUID (VANILLA) PO SCH ×2 (12:59→17:31)
--- NOTE | 2021-08-12 13:00 | NUR ---
MS RN NOTES PATIENT TOOK 50% OF HIS CRUSHED MEDICATIONS. PATIENT KEEPS ON SPITTING OUT HIS MEDICATIONS WITH APPLE SAUCE.
[2021-08-12] MEDS: IV 1/2NS 1000 ML 1,000 ML IV PRN (13:56)
[2021-08-12] MEDS: ENOXAPARIN SODIUM 40 MG/0.4 ML DISP.SYRIN SQ SCH (16:49)
--- NOTE | 2021-08-12 18:25 | NUR ---
PROPERTY CONTROLLER CLOSING NOTES PATIENT ON BED, AWAKE AND VERBALLY RESPONSIVE WITH CONFUSION. ON ROOM AIR TOLERATING WELL. NO SOB NOTED. NOT IN DISTRESS. WITH NO SIGNS OF PAIN VIA FLACC. WITH IV ACCESS AT RIGHT UPPER ARM G22 WITH 1/2NS AT 75ML/HR INFUSING WELL. ON SOFT BILATERAL WRIST RESTRAINTS DUE TO PULLING OUT IV LINES AND MOLECULAR PHYSICIST. SKIN AND CIRCULATION WITHIN NORMAL. DUE MEDS GIVEN. SAFETY MEASURES IN PLACE. CALL LIGHT WITHIN REACH. BED ON LOWEST AND LOCKED POSITION, SIDE RAILS UP X2. WILL ENDORSE TO NEXT SHIFT FOR GIOVANNA.
--- NOTE | 2021-08-12 18:28 | NUR ---
PLATE ROLLER NOTES ON TELEMONITOR CURRENTLY READING SR AT 73BPM.
--- NOTE | 2021-08-12 19:25 | NUR ---
TELE/RN OPENING NOTES PT RESTING IN BED, EASILY AROUSABLE TO STIMULI. A/OX1, CONFUSED/DISORIENTED. REORIENTATION PROVIDED. RESPIRATIONS EVEN/UNLABORED. ON ROOM AIR AND CHRISTOPHER WELL. IV SITE TO MARBELLA #22G INTACT/PATENT, RUNNING 1/2NS @75ML/HR. TELE MONITOR READING SR, HR 68. CANDICE. SOFT WRIST RESTRAINTS IN PLACE FOR SAFETY D/T PULLING OUT LINES/TUBES. SKIN AND CIRCULATION CHECKED WITH NO S/S OF COMPLICATIONS NOTED. PT IN NO ACUTE DISTRESS. SAFETY MEASURES IN PLACE. WILL CONT TO MONITOR.
[2021-08-12 20:00] VITALS: BP 136/66
[2021-08-12] MEDS ORDERED: ZOLPIDEM TARTRATE 5 MG TABLET PO SCH (22:00)
--- NOTE | 2021-08-12 22:58 | NUR ---
RN NOTE ROOM CHANGE FROM 324-2 TO 328-1
[2021-08-13] VITALS: BP 133/67
[2021-08-13 04:00] VITALS: BP 127/76
[2021-08-13] MEDS: IV 1/2NS 1000 ML 1,000 ML IV PRN (04:20)
--- NOTE | 2021-08-13 07:20 | NUR ---
TELE/RN CLOSING NOTE PT AWAKE IN BED, VERBALLY RESPONSIVE WITH CONFUSION. REORIENTATION PROVIDED. NO S/S OF PAIN NOTED. PT WITH CANDICE. SOFT WRIST RESTRAINTS IN PLACE FOR SAFETY D/T PULLING OUT LINES, WITH SKIN AND CIRCULATION WNL. PT IN NO ACUTE DISTRESS. SAFETY MEASURES IN PLACE. ALL NEEDS ATTENDED TO.
--- NOTE | 2021-08-13 07:30 | NUR ---
PT RECEIVED RESTING COMFORTABLY IN BED. NO S/S OR C/O PAIN OR DISTRESS NOTED. SIDE RAILS UP X2, CALL LIGHTS LEFT WITHIN REACH. WILL CONTINUE PLAN OF CARE.
[2021-08-13 08:00] VITALS: BP 120/71
[2021-08-13] MEDS: QUETIAPINE FUMARATE 25 MG TABLET PO SCH (08:25)
[2021-08-13] MEDS: MULTIVIT W/MINERALS 1 TAB TABLET PO SCH (08:26)
[2021-08-13] MEDS: PANTOPRAZOLE 40 MG TABLET.DR PO SCH (08:26)
[2021-08-13] MEDS: clonazePAM 1 MG TABLET PO SCH ×3 (08:26→18:10)
[2021-08-13] MEDS: ASPIRIN 81 MG TAB.CHEW PO SCH (08:26)
[2021-08-13] MEDS: DIVALPROEX SODIUM 500 MG TABLET.DR PO SCH ×3 (08:26→18:10)
[2021-08-13] MEDS: ENSURE ENLIVE 237 ML LIQUID (VANILLA) PO SCH ×3 (08:26→18:10)
--- NOTE | 2021-08-13 09:50 | NUR ---
WOUND CARE CONSULT: PT PRESENTS WITH RESOLVING STAGE 3 ULCER TO SACRUM, PRESENT ON ADMISSION. RECOMMENDATIONS MADE FOR SKIN PROTECTION AND WOUND CARE. DISCUSSED WITH NURSING STAFF. PT IS ON [facility] LOW AIRSS BED. DIETARY CONSULT IN PLACE. PT IS THIN. IN AGREEMENT WITH PLAN OF CARE. Addendum: 08/13/21 at 0952 by KEVIN ALDANAU Amended: Links added. Addendum: 08/13/21 at 0954 by KEVIN ALDANAU PT ALSO NOTED TO HAVE DRY SCABS ON ARMS, PRESENT ON ADMISSION.
[2021-08-13] MEDS ORDERED: HYDROGEL DRESSING 90 GM TUBE TP PRN (10:00)
[2021-08-13 12:00] VITALS: BP 91/44
[2021-08-13] MEDS: HYDROGEL DRESSING 90 GM TUBE TP SCH (14:05)
[2021-08-13 16:00] VITALS: BP 99/66
[2021-08-13] MEDS: ENOXAPARIN SODIUM 40 MG/0.4 ML DISP.SYRIN SQ SCH (18:07)
--- NOTE | 2021-08-13 19:30 | NUR ---
RN OPENING NOTES RESTING COMFORTABLY IN BED. NO S/S OR C/O PAIN OR DISTRESS NOTED. SIDE RAILS UP X2, CALL LIGHTS LEFT WITHIN REACH. PT HAS RESPRAINTS ON AT THIS TIME.WILL CONTINUE PLAN OF CARE.
--- NOTE | 2021-08-13 19:39 | NUR ---
CHANGE OF SHIFT REPORT PT RESTING COMFORTABLY IN BED. NO S/S OR C/O PAIN OR DISTRESS NOTED. SIDE RAILS UP X2, CALL LIGHT LEFT WITHIN REACH. PT KEPT CLEAN, DRY, AND COMFORTABLE. NO SIGNIFICANT CHANGES SINCE PREVIOUS SHIFT. WILL GIVE REPORT TO GITA MENDEZ.
[2021-08-13 20:00] VITALS: BP 106/67
[2021-08-14] VITALS: BP 102/65
[2021-08-14 04:00] VITALS: BP 115/74
--- NOTE | 2021-08-14 06:42 | NUR ---
RN NOTES PT RESTING COMFORTABLY IN BED. NO S/S OR C/O PAIN OR DISTRESS NOTED. SIDE RAILS UP X2, CALL LIGHT LEFT WITHIN REACH. PT KEPT CLEAN, DRY, AND COMFORTABLE. NO SIGNIFICANT CHANGES SINCE PREVIOUS SHIFT. WILL ENDORSE CRAE TO DAY SHIFT NURSE.
[2021-08-14] MEDS: PANTOPRAZOLE 40 MG TABLET.DR PO SCH (07:30)
[2021-08-14 08:00] VITALS: BP 98/63
[2021-08-14] MEDS: ENSURE ENLIVE 237 ML LIQUID (VANILLA) PO SCH ×3 (08:00→17:16)
[2021-08-14] MEDS: HALOPERIDOL LACTATE 10 MG/5 ML UDC GT SCH ×3 (08:47→17:13)
[2021-08-14] MEDS: DIVALPROEX SODIUM 500 MG TABLET.DR PO SCH ×3 (08:47→17:11)
[2021-08-14] MEDS: ASPIRIN 81 MG TAB.CHEW PO SCH (08:47)
[2021-08-14] MEDS: MULTIVIT W/MINERALS 1 TAB TABLET PO SCH (08:47)
[2021-08-14] MEDS: clonazePAM 1 MG TABLET PO SCH ×3 (08:47→17:11)
[2021-08-14] MEDS: HYDROGEL DRESSING 90 GM TUBE TP SCH (12:23)
[2021-08-14 16:09] VITALS: BP 106/65
[2021-08-14] MEDS: ENOXAPARIN SODIUM 40 MG/0.4 ML DISP.SYRIN SQ SCH (17:15)
--- NOTE | 2021-08-14 18:31 | NUR ---
CHANGE OF SHIFT REPORT PT RESTING COMFORTABLY IN BED. NO S/S OR C/O PAIN OR DISTRESS NOTED. SIDE RAILS UP X2, CALL LIGHT LEFT WITHIN REACH. PT KEPT CLEAN, DRY, AND COMFORTABLE. NO SIGNIFICANT CHANGES SINCE PREVIOUS SHIFT. HD ONGOING WILL GIVE REPORT TO GITA MENDEZ.
--- NOTE | 2021-08-14 19:26 | NUR ---
RN OPENING NOTES PT RESTING COMFORTABLY IN BED. NO S/S OR C/O PAIN OR DISTRESS NOTED. SIDE RAILS UP X2, CALL LIGHT LEFT WITHIN REACH. PT KEPT CLEAN, DRY, AND COMFORTABLE. PT ON BILATERAL SOFT WRIST RESTRAINTS CHECKED EVERY TWO HOURS . WILL CONTINUE TO MONITOR.
[2021-08-14 20:00] VITALS: BP 119/75
[2021-08-14 22:54] LABS: BILIRUBIN,URINE NEGATIVE (NEGATIVE); COLOR,URINE YELLOW (YELLOW); LEUKOCYTE ESTERASE ,URINE NEGATIVE (NEGATIVE); NITRITE, URINE NEGATIVE (NEGATIVE); PH,URINE 6.5 (5.0-8.0); PROTEIN,URINE NEGATIVE (NEGATIVE); UGLUCOSE NEGATIVE (NEGATIVE)
[2021-08-14 23:05] LABS: RBC,URINE 0-2 /HPF (0-2)
[2021-08-14 23:08] LABS: BACTERIA,URINE Few /HPF (None Seen); SQUAMOUS EPITHELIAL CELL,UR Few /HPF (None Seen)
--- NOTE | 2021-08-15 06:36 | NUR ---
RN OPENING NOTES PT RESTING COMFORTABLY IN BED. NO S/S OR C/O PAIN OR DISTRESS NOTED. SIDE RAILS UP X2, CALL LIGHT LEFT WITHIN REACH. PT KEPT CLEAN, DRY, AND COMFORTABLE. PT ON BILATERAL SOFT WRIST RESTRAINTS CHECKED EVERY TWO HOURS. WILL ENDORSE CARE TO DAY SHIFT NURSE.
[2021-08-15] MEDS: PANTOPRAZOLE 40 MG TABLET.DR PO SCH (07:30)
[2021-08-15] MEDS: ENSURE ENLIVE 237 ML LIQUID (VANILLA) PO SCH ×2 (08:00→12:35)
[2021-08-15] MEDS: clonazePAM 1 MG TABLET PO SCH ×2 (09:00→12:35)
[2021-08-15] MEDS: HYDROGEL DRESSING 90 GM TUBE TP SCH (09:00)
[2021-08-15] MEDS: ASPIRIN 81 MG TAB.CHEW PO SCH (09:00)
[2021-08-15] MEDS: MULTIVIT W/MINERALS 1 TAB TABLET PO SCH (09:00)
[2021-08-15] MEDS: DIVALPROEX SODIUM 500 MG TABLET.DR PO SCH ×2 (09:00→12:35)
[2021-08-15 09:01] LABS: BASOPHILS # (AUTO) 0.1 K/uL (0.0-0.2); BASOPHILS % (AUTO) 1.2 % (0.0-2.0); HEMATOCRIT 38 % (39-51); HEMOGLOBIN 12.8 g/dL (13.5-17.5); LYMPHOCYTES # (AUTO) 0.7 K/uL (0.8-4.8); LYMPHOCYTES % (AUTO) 13.5 % (20.0-44.0); MEAN CORPUSCULAR HGB CONC 34 g/dl (31.0-36.0); MEAN CORPUSCULAR VOLUME 96 fL (80-96); MONOCYTES # (AUTO) 0.5 K/uL (0.1-1.30); MONOCYTES % (AUTO) 9.3 % (2.0-12.0); PLATELET COUNT (AUTO) 188 K/uL (150-450); RED BLOOD CELL COUNT(AUTO) 3.98 MIL/uL (4.5-6.0); WHITE BLOOD COUNT (AUTO) 5.3 K/uL (4.3-11.0)
[2021-08-15 09:30] LABS: CALCIUM, SERUM 8.2 mg/dL (8.5-10.1); POTASSIUM 4.5 mmol/L (3.5-5.1)
--- NOTE | 2021-08-15 10:05 | NUR ---
MS RN NOTES: SPOKE AT LENGTH (30 MINUTES) WITH PATIENT'S RESPONSIBLE [employer] (RP), MADDISON - SON, REGARDING G-TUBE PLACEMENT SURGERY. MADDISON STATES HE IS NOT COMFORTABLE WITH GT SURGERY FOR HIS FATHER AT THIS TIME IT IS NOT WHAT HIS FATHER HAD WANTED. ALSO, HIS FATHER DID NOT WANT TO BE FULL CODE NOR DOES MADDISON AND WOULD LIKE TO DISCUSS CHANGING HIS FATHER'S POLST WITH MD/INSIDE WIRER AFTER CONVENING WITH THE FAMILY. DR. BARNETT NOTIFIED RE: AFOREMENTIONED. RESPONSE PENDING. PATIENT CONTINUES TO PULL AT IV LINES AND HAS PULLED OUT 2 IVs THIS AM. CONTINUES TO REFUSING ANYTHING PO EXCEPT FOR NUTRITION SHAKES. PATIENT BECOMES AGITATED AND IRRITABLE. REDIRECTION AND DISTRACTION UNSUCCESSFUL
[2021-08-15] MEDS ORDERED: IV D5/ 0.9% NACL 1,000 ML IV PRN (10:30)
--- NOTE | 2021-08-15 12:15 | NUR ---
MS RN NOTE PATIENT'S SON/ RP REFUSED G-TUBE INSERTION, DR. BARNETT AWARE WITH ORDER TO DISCHARGE PATIENT TO SNF. SON AWARE OF MD ORDER AND VERBALIZED UNDERSTANDING AND APPRECIATION. TRANSFER TO SNF AND TRANPORTATION ARRANGEMENTS C/O GAS MAIN AND LINE FITTER. WILL CONTINUE TO MONITOR PATIENT.
--- NOTE | 2021-08-15 14:00 | NUR ---
MS RN NOTES: REPORT GIVEN TO KARL AIKEN AT [facility] . TRANSPORT SLATED TO P/U PATIENT AT 1500. IV D/C'd WITH CATHETER TIP INTACT. PATIENT IN NAD AT THIS TIME. VSS. SOFT WRIST RESTRAINTS REMOVED. PATIENT UNDER OBSERVATION R/T SOFT WRIST RESTRAINT REMOVAL. PICTURES OF PATIENT'S SKIN TAKEN, PLACED IN CHART. VALUABLES COLLECTED, INVENTORY SHEET SIGNED AND WITNESSED. DISCHARGE INSTRUCTIONS COMPLETED AND COPIES MADE.
--- NOTE | 2021-08-15 14:40 | NUR ---
MS RN NOTES: EMT's AT BEDSIDE. REPORT GIVEN TO JOSÉ MIGUEL DE LA CRUZ. PATIENT IN NAD. VSS. TRANSFERRED FROM BED TO [facility] WITH SLIDE-BY ASSIST. NOTIFIED RP, MADDISON-SON, PATIENT EN R[facility]TE TO [facility].
== END 2021-08-15 15:00 | DRG 640 ==
LOC: ER 12:46 → TELE 14:24 → MED 08-14 08:06
PROVIDERS: ADMIT Student in an Organized Health Care Education/Training Program; ATTEND Nurse Practitioner Family
DX: E87.5 Hyperkalemia (principal); G93.41 Metabolic encephalopathy; E44.0 Moderate protein-calorie malnutrition; Z68.1 Body mass index [BMI] 19.9 or less, adult; R62.7 Adult failure to thrive; F32.9 Major depressive disorder, single episode, unspecified; F03.90 Unspecified dementia, unspecified severity, without behavioral disturbance, psychotic disturbance, mood disturbance, and anxiety; I10 Essential (primary) hypertension; E78.5 Hyperlipidemia, unspecified; R26.9 Unspecified abnormalities of gait and mobility; Z79.899 Other long term (current) drug therapy; D64.9 Anemia, unspecified; F41.9 Anxiety disorder, unspecified; G47.00 Insomnia, unspecified; R73.03 Prediabetes; F42.9 Obsessive-compulsive disorder, unspecified; Z66 Do not resuscitate
CPT/HCPCS: 36415; 71045-TC; 80048-TC; 80076-TC; 81001; 83690-TC; 83735-TC; 84100-TC; 84443-TC; 84484-TC; 85025-TC; 87081-TC; 87086-TC; 92526; 92611-TC; 93307-TC; A6248; C9803; G0378; J1650; J3490; J7030; J7042